=== PATIENT | female | born 1935 | race Caucasian/White ===

== ENCOUNTER 2023-07-16 15:25 | Inpatient (IN) | payer OTHER ==
[~2023-07-16] VITALS: Ht 152.4 cm; Wt 40.4 kg
[2023-07-16 15:26] VITALS: BP 126/84; PULSE 60; RESP 15; TEMP 97.7; O2SAT 98
[2023-07-16 16:27] LABS: ANION GAP 12.6 (8-16); CALCIUM 8.6 mg/dL (8.5-10.1); CARBON DIOXIDE 21.9 mmol/L (21-32); CHLORIDE 107 mmol/L (98-107); CREATININE 1.5 mg/dL (0.6-1.3); GLUCOSE 120 mg/dL (74-106); POTASSIUM 4.5 mmol/L (3.5-5.1); SODIUM SERUM 137 mmol/L (136-145); UREA NITROGEN, BLOOD 35 mg/dL (7-18)
[2023-07-16 16:27] LABS: BASOPHILS # (AUTO) 0.1 K/uL (0.00-0.22); BASOPHILS % (AUTO) 0.7 % (0.0-2.0); EOSINOPHILS % (AUTO) 0.3 % (0.0-4.0); HEMOGLOBIN 14.8 g/dL (12.0-16.0); LYMPHOCYTES # (AUTO) 1.1 K/uL (2.5-16.5); LYMPHOCYTES % (AUTO) 12.4 % (20.5-51.1); MEAN CORPUSCULAR HEMOGLOBIN 31 pg (27-31); MEAN CORPUSCULAR HGB CONC 33 g/dL (33-37); MEAN CORPUSCULAR VOLUME 93.4 fL (80-94); MONOCYTES # (AUTO) 0.7 K/uL (0.8-1.0); MONOCYTES % (AUTO) 7.8 % (1.7-9.3); NEUTROPHILS # (AUTO) 6.8 K/uL (1.8-7.7); NEUTROPHILS % (AUTO) 78.8 % (42.2-75.2); PLATELET COUNT (AUTO) 173 K/uL (140-450); RED BLOOD CELL COUNT(AUTO) 4.82 MIL/uL (4.20-5.40); RED CELL DISTRIBUTION WIDTH 15.3 % (11.6-13.7); WHITE BLOOD COUNT (AUTO) 8.7 K/uL (4.8-10.8)
[2023-07-16 16:36] LABS: ALANINE AMINOTRANSFERASE 13 U/L (12-78); ALBUMIN 3.3 g/dL (3.4-5.0); ALKALINE PHOSPHATASE 97 U/L (50-136); ASPARTATE AMINOTRANSFERASE 20 U/L (15-37); CALCIUM 8.5 mg/dL (8.5-10.1); CARBON DIOXIDE 22.5 mmol/L (21-32); CHLORIDE 108 mmol/L (98-107); CREATININE 1.5 mg/dL (0.6-1.3); GLUCOSE 119 mg/dL (74-106); POTASSIUM 4.5 mmol/L (3.5-5.1); SODIUM SERUM 139 mmol/L (136-145); TOTAL BILIRUBIN 1.7 mg/dL (0.0-1.0); TOTAL PROTEIN, SERUM 6.1 g/dL (6.4-8.2); UREA NITROGEN, BLOOD 35 mg/dL (7-18)
[2023-07-16] MEDS ORDERED: AZITHROMYCIN 500 MG in DEXTROSE 5% 250 ML IV ONE (16:45)
[2023-07-16] MEDS ORDERED: ASPIRIN 325 MG TAB PO ONE (16:50)
[2023-07-16] MEDS ORDERED: ONDANSETRON 4 MG/2 ML VIAL IVP PRN (17:15)
[2023-07-16 17:38] LABS: LACTIC ACID 2.8 mmol/L (0.4-2.0)
[2023-07-16] MEDS ORDERED: cefTRIAXone 1,000 MG VIAL ONE (18:01)
[2023-07-16] MEDS ORDERED: AZITHROMYCIN 500 MG INJ VIAL IV ONE (18:01)
[2023-07-16] MEDS ORDERED: ASPIRIN 325 MG TAB ONE (18:02)
[2023-07-16] MEDS ORDERED: [UNRECOGNIZED DRUG - CODE] (20:31)
[2023-07-16] MEDS ORDERED: MELA5TAB6 PO (20:31)
[2023-07-16] MEDS ORDERED: ALBU1SPR IH (20:31)
[2023-07-16] MEDS ORDERED: TOLT4CAP PO (20:31)
[2023-07-16] MEDS ORDERED: SERT50TA PO (20:31)
[2023-07-16] MEDS ORDERED: SERT25TA PO (20:31)
[2023-07-16] MEDS ORDERED: CARV3.12 PO (20:31)
[2023-07-16] MEDS ORDERED: [UNRECOGNIZED DRUG - CODE] IV (20:31)
[2023-07-16] MEDS ORDERED: FURO-572 PO (20:31)
[2023-07-16] MEDS ORDERED: MAGN400S60 PO (20:31)
[2023-07-16 20:39] VITALS: PULSE 75; PULSE 79; RESP 18; RESP 20; O2SAT 98
[2023-07-16] MEDS ORDERED: HALOPERIDOL IM 5 MG/ML VIAL IM ONE (21:30)
[2023-07-16] MEDS: ATORVASTATIN 20 MG TAB PO SCH (21:52)
[2023-07-17] VITALS (10 sets, daily range): BP systolic 126–139; BP diastolic 60–80; PULSE 59–96; RESP 18; TEMP 97.2–98.6; O2SAT 95–99
[2023-07-17 05:42] LABS: BASOPHILS % (AUTO) 0.2 % (0.0-2.0); HEMATOCRIT 41.8 % (36-48); HEMOGLOBIN 13.8 g/dL (12.0-16.0); LYMPHOCYTES # (AUTO) 1.1 K/uL (2.5-16.5); LYMPHOCYTES % (AUTO) 10.2 % (20.5-51.1); MEAN CORPUSCULAR HEMOGLOBIN 31 pg (27-31); MEAN CORPUSCULAR HGB CONC 33 g/dL (33-37); MEAN CORPUSCULAR VOLUME 93.4 fL (80-94); MONOCYTES # (AUTO) 0.8 K/uL (0.8-1.0); MONOCYTES % (AUTO) 6.9 % (1.7-9.3); NEUTROPHILS # (AUTO) 9.1 K/uL (1.8-7.7); NEUTROPHILS % (AUTO) 82.7 % (42.2-75.2); PLATELET COUNT (AUTO) 151 K/uL (140-450); RED BLOOD CELL COUNT(AUTO) 4.47 MIL/uL (4.20-5.40); RED CELL DISTRIBUTION WIDTH 15.5 % (11.6-13.7)
[2023-07-17 06:07] LABS: ANION GAP 15.6 (8-16); CALCIUM 8.7 mg/dL (8.5-10.1); CHLORIDE 106 mmol/L (98-107); CREATININE 1.6 mg/dL (0.6-1.3); GLUCOSE 112 mg/dL (74-106); POTASSIUM 4.6 mmol/L (3.5-5.1); SODIUM SERUM 139 mmol/L (136-145); UREA NITROGEN, BLOOD 38 mg/dL (7-18)
[2023-07-17] MEDS: IPRATROPIUM 0.02% 0.5 MG/2.5 ML NEBU INH SCH ×3 (07:41→19:33)
[2023-07-17] MEDS: ECOTRIN 81 MG TABEC PO SCH (09:44)
[2023-07-17] MEDS: FUROSEMIDE 40 MG/4 ML VIAL IVP SCH (09:44)
[2023-07-17] MEDS: ALBUTEROL 0.083% 2.5 MG/3 ML NEBU INH PRN (12:27)
[2023-07-17] MEDS: DOCUSATE SODIUM 100 MG GELCAP PO SCH (20:57)
[2023-07-17] MEDS: ATORVASTATIN 20 MG TAB PO SCH (20:57)
[2023-07-17] MEDS: carvediloL 3.125 MG TAB PO SCH (20:57)
[2023-07-18] VITALS (11 sets, daily range): BP systolic 107–144; BP diastolic 64–81; PULSE 60–77; RESP 18–22; TEMP 97.1–98.6; O2SAT 93–100
[2023-07-18] MEDS: IPRATROPIUM 0.02% 0.5 MG/2.5 ML NEBU INH SCH ×3 (00:58→19:28)
[2023-07-18 07:29] LABS: BASOPHILS % (AUTO) 0.3 % (0.0-2.0); EOSINOPHILS % (AUTO) 0.2 % (0.0-4.0); HEMATOCRIT 44.7 % (36-48); HEMOGLOBIN 14.6 g/dL (12.0-16.0); LYMPHOCYTES # (AUTO) 0.8 K/uL (2.5-16.5); LYMPHOCYTES % (AUTO) 8.3 % (20.5-51.1); MEAN CORPUSCULAR HEMOGLOBIN 31 pg (27-31); MEAN CORPUSCULAR HGB CONC 33 g/dL (33-37); MONOCYTES # (AUTO) 0.5 K/uL (0.8-1.0); MONOCYTES % (AUTO) 5.9 % (1.7-9.3); NEUTROPHILS # (AUTO) 7.9 K/uL (1.8-7.7); NEUTROPHILS % (AUTO) 85.3 % (42.2-75.2); PLATELET COUNT (AUTO) 164 K/uL (140-450); RED BLOOD CELL COUNT(AUTO) 4.75 MIL/uL (4.20-5.40); RED CELL DISTRIBUTION WIDTH 15.7 % (11.6-13.7); WHITE BLOOD COUNT (AUTO) 9.3 K/uL (4.8-10.8)
[2023-07-18] MEDS: ALBUTEROL 0.083% 2.5 MG/3 ML NEBU INH PRN (07:45)
[2023-07-18 07:56] LABS: ANION GAP 17.5 (8-16); CALCIUM 8.8 mg/dL (8.5-10.1); CARBON DIOXIDE 24.1 mmol/L (21-32); CHLORIDE 105 mmol/L (98-107); CREATININE 1.7 mg/dL (0.6-1.3); GLUCOSE 104 mg/dL (74-106); POTASSIUM 4.6 mmol/L (3.5-5.1); SODIUM SERUM 142 mmol/L (136-145); UREA NITROGEN, BLOOD 37 mg/dL (7-18)
[2023-07-18 08:10] LABS: CHOL/HDL RATIO 3.9 (1-4.5); THYROID STIMULATING HORMONE 3.11 uIU/mL (0.34-3.74)
[2023-07-18] MEDS: DOCUSATE SODIUM 100 MG GELCAP PO SCH ×2 (09:19→20:45)
[2023-07-18] MEDS: ECOTRIN 81 MG TABEC PO SCH (09:19)
[2023-07-18] MEDS: AZITHROMYCIN 250 MG TAB PO SCH (09:20)
[2023-07-18] MEDS: FUROSEMIDE 40 MG/4 ML VIAL IVP SCH (09:20)
[2023-07-18] MEDS: carvediloL 3.125 MG TAB PO SCH ×2 (09:20→20:46)
[2023-07-18] MEDS: ATORVASTATIN 20 MG TAB PO SCH (20:46)
[2023-07-19] VITALS (7 sets, daily range): BP systolic 119–145; BP diastolic 54–69; PULSE 60–75; RESP 16–20; TEMP 97.3–98; O2SAT 92–98
[2023-07-19] MEDS: IPRATROPIUM 0.02% 0.5 MG/2.5 ML NEBU INH SCH ×5 (01:00→19:00)
[2023-07-19 07:15] LABS: BASOPHILS % (AUTO) 0.1 % (0.0-2.0); EOSINOPHILS % (AUTO) 0.3 % (0.0-4.0); HEMATOCRIT 44.1 % (36-48); HEMOGLOBIN 14.5 g/dL (12.0-16.0); LYMPHOCYTES # (AUTO) 0.8 K/uL (2.5-16.5); LYMPHOCYTES % (AUTO) 8.1 % (20.5-51.1); MEAN CORPUSCULAR HEMOGLOBIN 31 pg (27-31); MEAN CORPUSCULAR HGB CONC 33 g/dL (33-37); MEAN CORPUSCULAR VOLUME 93.3 fL (80-94); MONOCYTES # (AUTO) 0.6 K/uL (0.8-1.0); MONOCYTES % (AUTO) 5.8 % (1.7-9.3); NEUTROPHILS # (AUTO) 8.5 K/uL (1.8-7.7); NEUTROPHILS % (AUTO) 85.7 % (42.2-75.2); PLATELET COUNT (AUTO) 161 K/uL (140-450); RED BLOOD CELL COUNT(AUTO) 4.73 MIL/uL (4.20-5.40); RED CELL DISTRIBUTION WIDTH 15.5 % (11.6-13.7); WHITE BLOOD COUNT (AUTO) 9.9 K/uL (4.8-10.8)
[2023-07-19] MEDS: ALBUTEROL 0.083% 2.5 MG/3 ML NEBU INH PRN ×2 (07:19→07:22)
[2023-07-19 07:32] LABS: ANION GAP 18.5 (8-16); CALCIUM 8.9 mg/dL (8.5-10.1); CARBON DIOXIDE 23.6 mmol/L (21-32); CHLORIDE 107 mmol/L (98-107); CREATININE 1.6 mg/dL (0.6-1.3); GLUCOSE 108 mg/dL (74-106); POTASSIUM 4.1 mmol/L (3.5-5.1); SODIUM SERUM 145 mmol/L (136-145); UREA NITROGEN, BLOOD 40 mg/dL (7-18)
[2023-07-19 07:56] LABS: MAGNESIUM 2.3 mg/dL (1.8-2.4); PHOSPHORUS 4.5 mg/dL (2.5-4.9)
[2023-07-19] MEDS: FUROSEMIDE 40 MG/4 ML VIAL IVP SCH (09:18)
[2023-07-19] MEDS: ECOTRIN 81 MG TABEC PO SCH (09:19)
[2023-07-19] MEDS: DOCUSATE SODIUM 100 MG GELCAP PO SCH ×2 (09:19→21:00)
[2023-07-19] MEDS: carvediloL 3.125 MG TAB PO SCH ×2 (09:19→21:00)
[2023-07-19] MEDS: AZITHROMYCIN 250 MG TAB PO SCH (09:19)
[2023-07-19] MEDS: ATORVASTATIN 20 MG TAB PO SCH (21:00)
[2023-07-20] VITALS (9 sets, daily range): BP systolic 117–142; BP diastolic 63–80; PULSE 61–79; RESP 14–20; TEMP 96.9–98; O2SAT 92–100
[2023-07-20] MEDS: IPRATROPIUM 0.02% 0.5 MG/2.5 ML NEBU INH SCH ×4 (01:00→20:48)
[2023-07-20 06:00] LABS: BASOPHILS % (AUTO) 0.2 % (0.0-2.0); HEMATOCRIT 45.1 % (36-48); HEMOGLOBIN 14.7 g/dL (12.0-16.0); LYMPHOCYTES # (AUTO) 0.6 K/uL (2.5-16.5); LYMPHOCYTES % (AUTO) 4.8 % (20.5-51.1); MEAN CORPUSCULAR HEMOGLOBIN 31 pg (27-31); MEAN CORPUSCULAR HGB CONC 33 g/dL (33-37); MEAN CORPUSCULAR VOLUME 94.3 fL (80-94); MONOCYTES # (AUTO) 0.8 K/uL (0.8-1.0); MONOCYTES % (AUTO) 5.7 % (1.7-9.3); NEUTROPHILS # (AUTO) 11.8 K/uL (1.8-7.7); NEUTROPHILS % (AUTO) 89.3 % (42.2-75.2); PLATELET COUNT (AUTO) 161 K/uL (140-450); RED BLOOD CELL COUNT(AUTO) 4.79 MIL/uL (4.20-5.40); RED CELL DISTRIBUTION WIDTH 16.3 % (11.6-13.7); WHITE BLOOD COUNT (AUTO) 13.2 K/uL (4.8-10.8)
[2023-07-20] MEDS: ALBUTEROL 0.083% 2.5 MG/3 ML NEBU INH PRN (07:59)
[2023-07-20] MEDS: FUROSEMIDE 40 MG/4 ML VIAL IVP SCH (08:47)
[2023-07-20] MEDS: AZITHROMYCIN 250 MG TAB PO SCH (08:53)
[2023-07-20] MEDS: DOCUSATE SODIUM 100 MG GELCAP PO SCH ×2 (08:53→21:18)
[2023-07-20] MEDS: ECOTRIN 81 MG TABEC PO SCH (08:53)
[2023-07-20] MEDS: carvediloL 3.125 MG TAB PO SCH ×2 (08:53→21:18)
[2023-07-20 10:06] LABS: ALANINE AMINOTRANSFERASE 15 U/L (12-78); ALBUMIN 3.6 g/dL (3.4-5.0); ALKALINE PHOSPHATASE 97 U/L (50-136); ANION GAP 25.4 (8-16); ASPARTATE AMINOTRANSFERASE 29 U/L (15-37); CALCIUM 8.9 mg/dL (8.5-10.1); CARBON DIOXIDE 17.8 mmol/L (21-32); CHLORIDE 108 mmol/L (98-107); CREATININE 2.1 mg/dL (0.6-1.3); GLUCOSE 103 mg/dL (74-106); MAGNESIUM 2.6 mg/dL (1.8-2.4); PHOSPHORUS 5.6 mg/dL (2.5-4.9); POTASSIUM 4.2 mmol/L (3.5-5.1); SODIUM SERUM 147 mmol/L (136-145); TOTAL BILIRUBIN 1.4 mg/dL (0.0-1.0); TOTAL PROTEIN, SERUM 6.4 g/dL (6.4-8.2); UREA NITROGEN, BLOOD 52 mg/dL (7-18)
[2023-07-20] MEDS: NACL 0.45% 1,000 ML IV SCH (18:26)
[2023-07-20] MEDS: ATORVASTATIN 20 MG TAB PO SCH (21:18)
[2023-07-21] VITALS (7 sets, daily range): BP systolic 129–138; BP diastolic 64–65; PULSE 60–83; RESP 18–20; TEMP 97.3–97.4; O2SAT 95–100
[2023-07-21] MEDS: IPRATROPIUM 0.02% 0.5 MG/2.5 ML NEBU INH SCH ×4 (01:20→19:08)
[2023-07-21 06:27] LABS: ANION GAP 16.4 (8-16); CALCIUM 8.5 mg/dL (8.5-10.1); CARBON DIOXIDE 25.1 mmol/L (21-32); CHLORIDE 109 mmol/L (98-107); CREATININE 2.1 mg/dL (0.6-1.3); GLUCOSE 111 mg/dL (74-106); POTASSIUM 4.5 mmol/L (3.5-5.1); SODIUM SERUM 146 mmol/L (136-145); UREA NITROGEN, BLOOD 59 mg/dL (7-18)
[2023-07-21 06:48] LABS: MAGNESIUM 2.4 mg/dL (1.8-2.4); PHOSPHORUS 5.3 mg/dL (2.5-4.9)
[2023-07-21] MEDS: FUROSEMIDE 40 MG/4 ML VIAL IVP SCH (09:20)
[2023-07-21] MEDS: ECOTRIN 81 MG TABEC PO SCH (09:20)
[2023-07-21] MEDS: carvediloL 3.125 MG TAB PO SCH ×2 (09:20→22:31)
[2023-07-21] MEDS: DOCUSATE SODIUM 100 MG GELCAP PO SCH ×2 (09:21→22:30)
[2023-07-21] MEDS: AZITHROMYCIN 250 MG TAB PO SCH (09:21)
[2023-07-21] MEDS: NACL 0.45% 1,000 ML IV SCH (09:22)
[2023-07-21] MEDS ORDERED: LORazepam 2 MG/ML VIAL IVP PRN (16:00)
[2023-07-21] MEDS: ATORVASTATIN 20 MG TAB PO SCH (22:32)
[2023-07-22] MEDS: IPRATROPIUM 0.02% 0.5 MG/2.5 ML NEBU INH SCH ×4 (01:00→19:00)
[2023-07-22 04:00] VITALS: BP 117/63; PULSE 84; RESP 18; TEMP 97.4; O2SAT 99
[2023-07-22 06:03] LABS: ANION GAP 16.4 (8-16); CALCIUM 8.6 mg/dL (8.5-10.1); CARBON DIOXIDE 25.2 mmol/L (21-32); CHLORIDE 111 mmol/L (98-107); GLUCOSE 82 mg/dL (74-106); POTASSIUM 4.6 mmol/L (3.5-5.1); SODIUM SERUM 148 mmol/L (136-145)
[2023-07-22 06:05] LABS: BASOPHILS % (AUTO) 0.5 % (0.0-2.0); HEMATOCRIT 45.1 % (36-48); HEMOGLOBIN 14.8 g/dL (12.0-16.0); LYMPHOCYTES # (AUTO) 0.7 K/uL (2.5-16.5); LYMPHOCYTES % (AUTO) 6.7 % (20.5-51.1); MEAN CORPUSCULAR HEMOGLOBIN 31 pg (27-31); MEAN CORPUSCULAR HGB CONC 33 g/dL (33-37); MONOCYTES % (AUTO) 10.1 % (1.7-9.3); NEUTROPHILS # (AUTO) 8.2 K/uL (1.8-7.7); NEUTROPHILS % (AUTO) 82.7 % (42.2-75.2); PLATELET COUNT (AUTO) 136 K/uL (140-450); RED CELL DISTRIBUTION WIDTH 16.3 % (11.6-13.7); WHITE BLOOD COUNT (AUTO) 9.9 K/uL (4.8-10.8)
[2023-07-22 06:08] LABS: CREATININE 1.7 mg/dL (0.6-1.3); UREA NITROGEN, BLOOD 64 mg/dL (7-18)
[2023-07-22 06:37] LABS: MAGNESIUM 2.7 mg/dL (1.8-2.4); PHOSPHORUS 5.3 mg/dL (2.5-4.9)
[2023-07-22 07:35] VITALS: PULSE 54; RESP 16; O2SAT 92
[2023-07-22 08:00] VITALS: PULSE 75; RESP 18; RESP 20; O2SAT 98
[2023-07-22] MEDS: CALCIUM ACETATE 667 MG TAB PO SCH (08:00)
[2023-07-22] MEDS ORDERED: AZIT250T3 PO (08:20)
[2023-07-22] MEDS ORDERED: ALBU0.0912 INH (08:20)
[2023-07-22] MEDS: ECOTRIN 81 MG TABEC PO SCH (09:00)
[2023-07-22] MEDS: carvediloL 3.125 MG TAB PO SCH ×3 (09:00→23:54)
[2023-07-22] MEDS: AZITHROMYCIN 250 MG TAB PO SCH (09:00)
[2023-07-22] MEDS: DOCUSATE SODIUM 100 MG GELCAP PO SCH ×3 (09:00→23:54)
[2023-07-22] MEDS: FUROSEMIDE 40 MG/4 ML VIAL IVP SCH (09:31)
[2023-07-22 12:00] VITALS: BP 115/62; PULSE 72; RESP 22; TEMP 97.8; O2SAT 97
[2023-07-22] MEDS: ALBUTEROL 0.083% 2.5 MG/3 ML NEBU INH PRN (13:57)
[2023-07-22 13:58] VITALS: PULSE 70; RESP 20; O2SAT 92
[2023-07-22] MEDS: DEXT 5% / NACL 0.45% 1,000 ML IV SCH (15:36)
[2023-07-22 20:00] VITALS: BP 140/70; PULSE 66; RESP 20; TEMP 98; O2SAT 95
[2023-07-22] MEDS: ATORVASTATIN 20 MG TAB PO SCH ×2 (23:00→23:54)
[2023-07-23] VITALS (8 sets, daily range): BP systolic 133–155; BP diastolic 75–90; PULSE 66–92; RESP 16–24; TEMP 96.3–98.6; O2SAT 90–97
[2023-07-23] MEDS: IPRATROPIUM 0.02% 0.5 MG/2.5 ML NEBU INH SCH ×4 (01:00→20:33)
[2023-07-23 06:02] LABS: BASOPHILS % (AUTO) 0.1 % (0.0-2.0); HEMATOCRIT 47.3 % (36-48); HEMOGLOBIN 15.5 g/dL (12.0-16.0); LYMPHOCYTES # (AUTO) 0.4 K/uL (2.5-16.5); LYMPHOCYTES % (AUTO) 3.6 % (20.5-51.1); MEAN CORPUSCULAR HEMOGLOBIN 31 pg (27-31); MEAN CORPUSCULAR HGB CONC 33 g/dL (33-37); MEAN CORPUSCULAR VOLUME 94.2 fL (80-94); MONOCYTES # (AUTO) 0.8 K/uL (0.8-1.0); MONOCYTES % (AUTO) 7.2 % (1.7-9.3); NEUTROPHILS # (AUTO) 9.3 K/uL (1.8-7.7); NEUTROPHILS % (AUTO) 89.1 % (42.2-75.2); PLATELET COUNT (AUTO) 127 K/uL (140-450); RED BLOOD CELL COUNT(AUTO) 5.02 MIL/uL (4.20-5.40); RED CELL DISTRIBUTION WIDTH 16.4 % (11.6-13.7); WHITE BLOOD COUNT (AUTO) 10.5 K/uL (4.8-10.8)
[2023-07-23] MEDS: DEXT 5% / NACL 0.45% 1,000 ML IV SCH (06:54)
[2023-07-23 07:07] LABS: MAGNESIUM 2.5 mg/dL (1.8-2.4); PHOSPHORUS 3.8 mg/dL (2.5-4.9)
[2023-07-23 07:16] LABS: ANION GAP 17.5 (8-16); CALCIUM 8.4 mg/dL (8.5-10.1); CARBON DIOXIDE 25.9 mmol/L (21-32); CHLORIDE 112 mmol/L (98-107); CREATININE 1.6 mg/dL (0.6-1.3); GLUCOSE 157 mg/dL (74-106); POTASSIUM 3.4 mmol/L (3.5-5.1); SODIUM SERUM 152 mmol/L (136-145); UREA NITROGEN, BLOOD 57 mg/dL (7-18)
[2023-07-23] MEDS: CALCIUM ACETATE 667 MG TAB PO SCH (08:00)
[2023-07-23] MEDS: DOCUSATE SODIUM 100 MG GELCAP PO SCH ×2 (09:00→21:00)
[2023-07-23] MEDS: AZITHROMYCIN 250 MG TAB PO SCH (09:00)
[2023-07-23] MEDS: ECOTRIN 81 MG TABEC PO SCH (09:00)
[2023-07-23] MEDS: carvediloL 3.125 MG TAB PO SCH ×2 (09:00→21:00)
[2023-07-23] MEDS: FUROSEMIDE 40 MG/4 ML VIAL IVP SCH (09:21)
[2023-07-23] MEDS: DEXTROSE 5% 1,000 ML IV SCH (18:50)
[2023-07-23] MEDS: ALBUTEROL 0.083% 2.5 MG/3 ML NEBU INH PRN (20:33)
[2023-07-23] MEDS: ATORVASTATIN 20 MG TAB PO SCH (21:00)
[2023-07-24] MEDS: IPRATROPIUM 0.02% 0.5 MG/2.5 ML NEBU INH SCH ×4 (01:00→19:45)
[2023-07-24] MEDS: DEXTROSE 5% 1,000 ML IV SCH ×3 (03:30→23:38)
[2023-07-24 04:00] VITALS: BP 143/65; PULSE 66; RESP 16; TEMP 97; O2SAT 95
[2023-07-24 07:21] LABS: BASOPHILS % (AUTO) 0.1 % (0.0-2.0); HEMATOCRIT 44.8 % (36-48); HEMOGLOBIN 14.6 g/dL (12.0-16.0); LYMPHOCYTES # (AUTO) 0.3 K/uL (2.5-16.5); LYMPHOCYTES % (AUTO) 3.2 % (20.5-51.1); MEAN CORPUSCULAR HEMOGLOBIN 31 pg (27-31); MEAN CORPUSCULAR HGB CONC 33 g/dL (33-37); MEAN CORPUSCULAR VOLUME 93.7 fL (80-94); MONOCYTES # (AUTO) 0.6 K/uL (0.8-1.0); MONOCYTES % (AUTO) 5.8 % (1.7-9.3); NEUTROPHILS # (AUTO) 9.7 K/uL (1.8-7.7); NEUTROPHILS % (AUTO) 90.9 % (42.2-75.2); PLATELET COUNT (AUTO) 100 K/uL (140-450); RED BLOOD CELL COUNT(AUTO) 4.78 MIL/uL (4.20-5.40); RED CELL DISTRIBUTION WIDTH 16.5 % (11.6-13.7); WHITE BLOOD COUNT (AUTO) 10.7 K/uL (4.8-10.8)
[2023-07-24 07:40] LABS: ANION GAP 13.2 (8-16); CALCIUM 8.3 mg/dL (8.5-10.1); CARBON DIOXIDE 28.4 mmol/L (21-32); CHLORIDE 110 mmol/L (98-107); GLUCOSE 113 mg/dL (74-106); SODIUM SERUM 149 mmol/L (136-145); UREA NITROGEN, BLOOD 39 mg/dL (7-18)
[2023-07-24 07:44] VITALS: PULSE 65; RESP 22; O2SAT 93
[2023-07-24] MEDS: ALBUTEROL 0.083% 2.5 MG/3 ML NEBU INH PRN (07:44)
[2023-07-24 07:47] LABS: MAGNESIUM 2.2 mg/dL (1.8-2.4); PHOSPHORUS 2.5 mg/dL (2.5-4.9)
[2023-07-24 07:49] LABS: POTASSIUM 2.6 mmol/L (3.5-5.1)
[2023-07-24 08:00] VITALS: PULSE 92; RESP 16; RESP 21; O2SAT 96
[2023-07-24] MEDS: CALCIUM ACETATE 667 MG TAB PO SCH (08:00)
[2023-07-24] MEDS ORDERED: POTASSIUM CHL 40 MEQ/ D5-1/2NS 1,000 ML IV SCH (08:05)
[2023-07-24] MEDS ORDERED: POTASSIUM CHLORIDE 10 MEQ TABER PO SCH (08:20)
[2023-07-24] MEDS: carvediloL 3.125 MG TAB PO SCH ×2 (09:00→20:45)
[2023-07-24] MEDS: AZITHROMYCIN 250 MG TAB PO SCH (09:00)
[2023-07-24] MEDS ORDERED: POTASSIUM CHLORIDE 40 MEQ, LIDOCAINE 1% 25 MG in NACL 0.9% 250 ML IV SCH (09:00)
[2023-07-24] MEDS: DOCUSATE SODIUM 100 MG GELCAP PO SCH ×2 (09:00→20:44)
[2023-07-24] MEDS: ECOTRIN 81 MG TABEC PO SCH (09:00)
[2023-07-24] MEDS: FUROSEMIDE 40 MG/4 ML VIAL IVP SCH (11:22)
[2023-07-24 12:00] VITALS: BP 143/65; PULSE 92; RESP 16; TEMP 97; O2SAT 96
[2023-07-24 13:56] VITALS: PULSE 82; RESP 20; O2SAT 93
[2023-07-24 20:00] VITALS: BP 117/78; PULSE 84; RESP 18; TEMP 97.3; O2SAT 93
[2023-07-24] MEDS: ATORVASTATIN 20 MG TAB PO SCH (20:45)
[2023-07-25] VITALS (9 sets, daily range): BP systolic 143–149; BP diastolic 76–90; PULSE 66–88; RESP 16–26; TEMP 97–97.8; O2SAT 90–99
[2023-07-25] MEDS: IPRATROPIUM 0.02% 0.5 MG/2.5 ML NEBU INH SCH ×4 (02:41→19:52)
[2023-07-25 07:17] LABS: CALCIUM 8.4 mg/dL (8.5-10.1); CARBON DIOXIDE 24.6 mmol/L (21-32); CHLORIDE 107 mmol/L (98-107); GLUCOSE 142 mg/dL (74-106); POTASSIUM 3.6 mmol/L (3.5-5.1); SODIUM SERUM 144 mmol/L (136-145); UREA NITROGEN, BLOOD 32 mg/dL (7-18)
[2023-07-25 07:30] LABS: HEMATOCRIT 47.9 % (36-48); HEMOGLOBIN 15.7 g/dL (12.0-16.0); LYMPHOCYTES # (AUTO) 0.4 K/uL (2.5-16.5); LYMPHOCYTES % (AUTO) 3.2 % (20.5-51.1); MEAN CORPUSCULAR HEMOGLOBIN 31 pg (27-31); MEAN CORPUSCULAR HGB CONC 33 g/dL (33-37); MEAN CORPUSCULAR VOLUME 94.5 fL (80-94); MONOCYTES # (AUTO) 0.5 K/uL (0.8-1.0); MONOCYTES % (AUTO) 4.4 % (1.7-9.3); NEUTROPHILS # (AUTO) 10.2 K/uL (1.8-7.7); NEUTROPHILS % (AUTO) 92.4 % (42.2-75.2); PLATELET COUNT (AUTO) 99 K/uL (140-450); RED BLOOD CELL COUNT(AUTO) 5.07 MIL/uL (4.20-5.40); RED CELL DISTRIBUTION WIDTH 16.1 % (11.6-13.7)
[2023-07-25] MEDS: CALCIUM ACETATE 667 MG TAB PO SCH (08:00)
[2023-07-25] MEDS: FUROSEMIDE 40 MG/4 ML VIAL IVP SCH (08:29)
[2023-07-25] MEDS: ECOTRIN 81 MG TABEC PO SCH (08:37)
[2023-07-25] MEDS: DOCUSATE SODIUM 100 MG GELCAP PO SCH ×2 (08:37→21:00)
[2023-07-25] MEDS: carvediloL 3.125 MG TAB PO SCH ×2 (08:37→21:00)
[2023-07-25 08:45] LABS: MAGNESIUM 2.1 mg/dL (1.8-2.4); PHOSPHORUS 2.3 mg/dL (2.5-4.9)
[2023-07-25] MEDS ORDERED: DEXT 5% / NACL 0.9% 500 ML IV SCH (09:40)
[2023-07-25] MEDS ORDERED: DEXT 5% /NACL 0.9% 1,000 ML IV SCH (09:40)
[2023-07-25] MEDS: DEXT 5% /NACL 0.9% 1,000 ML IV SCH (10:32)
[2023-07-25] MEDS: ATORVASTATIN 20 MG TAB PO SCH (21:00)
[2023-07-26] VITALS (7 sets, daily range): BP systolic 126–143; BP diastolic 63–66; PULSE 78–95; RESP 18–36; TEMP 96.3–97.8; O2SAT 92–100
[2023-07-26] MEDS: IPRATROPIUM 0.02% 0.5 MG/2.5 ML NEBU INH SCH ×4 (01:36→20:01)
[2023-07-26] MEDS: DEXT 5% /NACL 0.9% 1,000 ML IV SCH (05:46)
[2023-07-26 07:38] LABS: BASOPHILS % (AUTO) 0.4 % (0.0-2.0); HEMATOCRIT 47.9 % (36-48); HEMOGLOBIN 15.4 g/dL (12.0-16.0); LYMPHOCYTES # (AUTO) 0.3 K/uL (2.5-16.5); MEAN CORPUSCULAR HEMOGLOBIN 30 pg (27-31); MEAN CORPUSCULAR HGB CONC 32 g/dL (33-37); MEAN CORPUSCULAR VOLUME 93.7 fL (80-94); MONOCYTES # (AUTO) 0.5 K/uL (0.8-1.0); MONOCYTES % (AUTO) 4.3 % (1.7-9.3); NEUTROPHILS # (AUTO) 10.4 K/uL (1.8-7.7); NEUTROPHILS % (AUTO) 92.3 % (42.2-75.2); PLATELET COUNT (AUTO) 86 K/uL (140-450); RED BLOOD CELL COUNT(AUTO) 5.12 MIL/uL (4.20-5.40); RED CELL DISTRIBUTION WIDTH 16.2 % (11.6-13.7); WHITE BLOOD COUNT (AUTO) 11.2 K/uL (4.8-10.8)
[2023-07-26 08:12] LABS: CALCIUM 8.6 mg/dL (8.5-10.1); CARBON DIOXIDE 27.2 mmol/L (21-32); CHLORIDE 110 mmol/L (98-107); GLUCOSE 136 mg/dL (74-106); POTASSIUM 3.2 mmol/L (3.5-5.1); SODIUM SERUM 147 mmol/L (136-145); UREA NITROGEN, BLOOD 33 mg/dL (7-18)
[2023-07-26] MEDS: ALBUTEROL 0.083% 2.5 MG/3 ML NEBU INH PRN (08:17)
[2023-07-26] MEDS ORDERED: POTASSIUM CHLORIDE 40 MEQ, LIDOCAINE 1% 25 MG in NACL 0.9% 250 ML IV ONE (08:35)
[2023-07-26] MEDS: ECOTRIN 81 MG TABEC PO SCH (09:00)
[2023-07-26] MEDS: carvediloL 3.125 MG TAB PO SCH ×2 (09:00→20:30)
[2023-07-26] MEDS: DOCUSATE SODIUM 100 MG GELCAP PO SCH ×2 (09:00→20:29)
[2023-07-26] MEDS: FUROSEMIDE 40 MG/4 ML VIAL IVP SCH (09:44)
[2023-07-26] MEDS: LEVALBUTEROL 0.63 MG/3 ML NEBU INH SCH ×3 (14:38→20:03)
[2023-07-26] MEDS: ATORVASTATIN 20 MG TAB PO SCH (20:29)
[2023-07-27] MEDS: IPRATROPIUM 0.02% 0.5 MG/2.5 ML NEBU INH SCH ×4 (00:56→19:22)
[2023-07-27] MEDS: LEVALBUTEROL 0.63 MG/3 ML NEBU INH SCH ×4 (00:57→19:22)
[2023-07-27 01:04] VITALS: PULSE 89; RESP 20; O2SAT 93
[2023-07-27] MEDS: DEXT 5% /NACL 0.9% 1,000 ML IV SCH (01:54)
[2023-07-27 04:00] VITALS: BP 130/62; PULSE 80; RESP 18; TEMP 97.3; O2SAT 100
[2023-07-27 08:00] VITALS: PULSE 81; RESP 18; O2SAT 100; O2SAT 98
[2023-07-27 08:46] LABS: BASOPHILS % (AUTO) 0.1 % (0.0-2.0); HEMATOCRIT 49.1 % (36-48); LYMPHOCYTES # (AUTO) 0.5 K/uL (2.5-16.5); LYMPHOCYTES % (AUTO) 3.3 % (20.5-51.1); MEAN CORPUSCULAR HEMOGLOBIN 31 pg (27-31); MEAN CORPUSCULAR HGB CONC 33 g/dL (33-37); MEAN CORPUSCULAR VOLUME 94.6 fL (80-94); MONOCYTES # (AUTO) 0.6 K/uL (0.8-1.0); MONOCYTES % (AUTO) 4.5 % (1.7-9.3); NEUTROPHILS # (AUTO) 12.9 K/uL (1.8-7.7); NEUTROPHILS % (AUTO) 92.1 % (42.2-75.2); PLATELET COUNT (AUTO) 81 K/uL (140-450); RED BLOOD CELL COUNT(AUTO) 5.19 MIL/uL (4.20-5.40); RED CELL DISTRIBUTION WIDTH 16.5 % (11.6-13.7)
[2023-07-27] MEDS: DOCUSATE SODIUM 100 MG GELCAP PO SCH ×2 (09:00→22:11)
[2023-07-27] MEDS: ECOTRIN 81 MG TABEC PO SCH (09:00)
[2023-07-27] MEDS: carvediloL 3.125 MG TAB PO SCH ×2 (09:00→22:11)
[2023-07-27 09:16] LABS: ANION GAP 15.1 (8-16); CALCIUM 8.8 mg/dL (8.5-10.1); CHLORIDE 113 mmol/L (98-107); CREATININE 1.5 mg/dL (0.6-1.3); GLUCOSE 146 mg/dL (74-106); POTASSIUM 4.1 mmol/L (3.5-5.1); SODIUM SERUM 151 mmol/L (136-145); UREA NITROGEN, BLOOD 16 mg/dL (7-18)
[2023-07-27] MEDS: DEXT 5% / NACL 0.45% 1,000 ML IV SCH (10:17)
[2023-07-27 12:00] VITALS: BP 138/69; PULSE 94; RESP 18; TEMP 97.6; O2SAT 95
[2023-07-27 19:22] VITALS: PULSE 101; RESP 20; O2SAT 96
[2023-07-27 20:00] VITALS: BP 128/70; PULSE 88; PULSE 98; RESP 18; TEMP 97.9; O2SAT 97
[2023-07-27] MEDS: PIPERACILLIN/TAZOBACTAM 2.25 GM in DEXTROSE 5% 50 ML IV SCH (21:25)
[2023-07-27] MEDS: ATORVASTATIN 20 MG TAB PO SCH (22:12)
[2023-07-28] VITALS (10 sets, daily range): BP systolic 110–161; BP diastolic 50–81; PULSE 62–85; RESP 16–32; TEMP 96.5–98.8; O2SAT 94–99
[2023-07-28] MEDS: IPRATROPIUM 0.02% 0.5 MG/2.5 ML NEBU INH SCH ×3 (01:32→19:45)
[2023-07-28] MEDS: LEVALBUTEROL 0.63 MG/3 ML NEBU INH SCH ×3 (01:33→19:45)
[2023-07-28] MEDS: DEXT 5% / NACL 0.45% 1,000 ML IV SCH (05:29)
[2023-07-28] MEDS: PIPERACILLIN/TAZOBACTAM 2.25 GM in DEXTROSE 5% 50 ML IV SCH ×3 (05:35→20:27)
[2023-07-28 05:47] LABS: HEMATOCRIT 46.2 % (36-48); HEMOGLOBIN 14.8 g/dL (12.0-16.0); LYMPHOCYTES # (AUTO) 0.5 K/uL (2.5-16.5); LYMPHOCYTES % (AUTO) 2.8 % (20.5-51.1); MEAN CORPUSCULAR HEMOGLOBIN 31 pg (27-31); MEAN CORPUSCULAR HGB CONC 32 g/dL (33-37); MEAN CORPUSCULAR VOLUME 95.5 fL (80-94); MONOCYTES # (AUTO) 0.9 K/uL (0.8-1.0); MONOCYTES % (AUTO) 4.8 % (1.7-9.3); NEUTROPHILS # (AUTO) 16.7 K/uL (1.8-7.7); NEUTROPHILS % (AUTO) 92.4 % (42.2-75.2); PLATELET COUNT (AUTO) 59 K/uL (140-450); RED BLOOD CELL COUNT(AUTO) 4.83 MIL/uL (4.20-5.40); WHITE BLOOD COUNT (AUTO) 18.1 K/uL (4.8-10.8)
[2023-07-28 06:14] LABS: ANION GAP 17.6 (8-16); CALCIUM 8.7 mg/dL (8.5-10.1); CARBON DIOXIDE 21.6 mmol/L (21-32); CHLORIDE 116 mmol/L (98-107); CREATININE 1.9 mg/dL (0.6-1.3); GLUCOSE 127 mg/dL (74-106); POTASSIUM 4.2 mmol/L (3.5-5.1); SODIUM SERUM 151 mmol/L (136-145); UREA NITROGEN, BLOOD 59 mg/dL (7-18)
[2023-07-28] MEDS: ECOTRIN 81 MG TABEC PO SCH (09:00)
[2023-07-28] MEDS: DOCUSATE SODIUM 100 MG GELCAP PO SCH ×2 (09:00→20:28)
[2023-07-28] MEDS: carvediloL 3.125 MG TAB PO SCH ×2 (09:00→20:28)
[2023-07-28] MEDS: ALBUTEROL 0.083% 2.5 MG/3 ML NEBU INH PRN (09:34)
[2023-07-28] MEDS: ALBUMIN HUMAN 25% 50 ML IV SCH ×2 (09:37→20:20)
[2023-07-28] MEDS: FUROSEMIDE 20 MG/2 ML VIAL IVP SCH ×2 (10:25→20:26)
[2023-07-28 13:09] LABS: BLOOD GAS HCO3 20.4 mmol/L (22-26); BLOOD GAS PCO2 39.7 mmHg (35-45); BLOOD GAS PH 7.329 (7.35-7.45); BLOOD GAS PO2 103.9 mmHg (75-100)
[2023-07-28 13:10] LABS: BLOOD GAS O2 SAT% 97.6 % (92.0-98.5)
[2023-07-28 13:15] LABS: BLOOD GAS BASE EXCESS -5.1 mmol/L (-2.0-2.0)
[2023-07-28] MEDS ORDERED: FUROSEMIDE 40 MG/4 ML VIAL IVP SCH (17:00)
[2023-07-28] MEDS: ATORVASTATIN 20 MG TAB PO SCH (20:29)
[2023-07-29] VITALS (9 sets, daily range): BP systolic 89–116; BP diastolic 37–49; PULSE 56–74; RESP 15–32; TEMP 96.7–97.2; O2SAT 96–100
[2023-07-29] MEDS: IPRATROPIUM 0.02% 0.5 MG/2.5 ML NEBU INH SCH ×4 (00:38→19:00)
[2023-07-29] MEDS: LEVALBUTEROL 0.63 MG/3 ML NEBU INH SCH ×4 (00:38→22:20)
[2023-07-29] MEDS: DEXT 5% / NACL 0.45% 1,000 ML IV SCH ×3 (01:30→22:23)
[2023-07-29] MEDS: PIPERACILLIN/TAZOBACTAM 2.25 GM in DEXTROSE 5% 50 ML IV SCH ×4 (02:28→22:23)
[2023-07-29] MEDS: ALBUMIN HUMAN 25% 50 ML IV SCH ×2 (08:09→21:17)
[2023-07-29 08:59] LABS: HEMATOCRIT 45.2 % (36-48); HEMOGLOBIN 14.3 g/dL (12.0-16.0); LYMPHOCYTES # (AUTO) 0.6 K/uL (2.5-16.5); LYMPHOCYTES % (AUTO) 3.7 % (20.5-51.1); MEAN CORPUSCULAR HEMOGLOBIN 30 pg (27-31); MEAN CORPUSCULAR HGB CONC 32 g/dL (33-37); MEAN CORPUSCULAR VOLUME 94.3 fL (80-94); MONOCYTES # (AUTO) 0.6 K/uL (0.8-1.0); MONOCYTES % (AUTO) 3.7 % (1.7-9.3); NEUTROPHILS # (AUTO) 14.3 K/uL (1.8-7.7); NEUTROPHILS % (AUTO) 92.6 % (42.2-75.2); PLATELET COUNT (AUTO) 36 K/uL (140-450); RED BLOOD CELL COUNT(AUTO) 4.79 MIL/uL (4.20-5.40); RED CELL DISTRIBUTION WIDTH 17.1 % (11.6-13.7); WHITE BLOOD COUNT (AUTO) 15.5 K/uL (4.8-10.8)
[2023-07-29] MEDS: DOCUSATE SODIUM 100 MG GELCAP PO SCH ×2 (09:00→21:00)
[2023-07-29] MEDS: ECOTRIN 81 MG TABEC PO SCH (09:00)
[2023-07-29] MEDS: FUROSEMIDE 20 MG/2 ML VIAL IVP SCH (09:00)
[2023-07-29] MEDS: carvediloL 3.125 MG TAB PO SCH (09:00)
[2023-07-29 09:07] LABS: ALANINE AMINOTRANSFERASE 17 U/L (12-78); ALBUMIN 2.4 g/dL (3.4-5.0); ALKALINE PHOSPHATASE 80 U/L (50-136); ANION GAP 15.5 (8-16); ASPARTATE AMINOTRANSFERASE 92 U/L (15-37); CALCIUM 8.3 mg/dL (8.5-10.1); CARBON DIOXIDE 25.6 mmol/L (21-32); CHLORIDE 116 mmol/L (98-107); GLUCOSE 107 mg/dL (74-106); POTASSIUM 4.1 mmol/L (3.5-5.1); SODIUM SERUM 153 mmol/L (136-145); TOTAL BILIRUBIN 1.7 mg/dL (0.0-1.0); TOTAL PROTEIN, SERUM 4.8 g/dL (6.4-8.2)
[2023-07-29 09:35] LABS: UREA NITROGEN, BLOOD 82 mg/dL (7-18)
[2023-07-30] VITALS (7 sets, daily range): BP systolic 0–94; BP diastolic 0–37; PULSE 0–72; RESP 0–30; TEMP 96.9; O2SAT 0–98
[2023-07-30] MEDS: IPRATROPIUM 0.02% 0.5 MG/2.5 ML NEBU INH SCH ×3 (03:03→14:13)
[2023-07-30] MEDS: LEVALBUTEROL 0.63 MG/3 ML NEBU INH SCH ×3 (03:03→14:13)
[2023-07-30] MEDS: PIPERACILLIN/TAZOBACTAM 2.25 GM in DEXTROSE 5% 50 ML IV SCH ×2 (04:42→12:49)
[2023-07-30 05:50] LABS: BASOPHILS % (AUTO) 0.1 % (0.0-2.0); EOSINOPHILS % (AUTO) 0.1 % (0.0-4.0); HEMATOCRIT 43.1 % (36-48); HEMOGLOBIN 13.9 g/dL (12.0-16.0); LYMPHOCYTES # (AUTO) 0.7 K/uL (2.5-16.5); MEAN CORPUSCULAR HEMOGLOBIN 31 pg (27-31); MEAN CORPUSCULAR HGB CONC 32 g/dL (33-37); MEAN CORPUSCULAR VOLUME 95.2 fL (80-94); MONOCYTES # (AUTO) 0.5 K/uL (0.8-1.0); NEUTROPHILS # (AUTO) 15.8 K/uL (1.8-7.7); NEUTROPHILS % (AUTO) 92.8 % (42.2-75.2); PLATELET COUNT (AUTO) 31 K/uL (140-450); RED BLOOD CELL COUNT(AUTO) 4.53 MIL/uL (4.20-5.40); RED CELL DISTRIBUTION WIDTH 16.7 % (11.6-13.7)
[2023-07-30 06:36] LABS: ALANINE AMINOTRANSFERASE 17 U/L (12-78); ALBUMIN 2.6 g/dL (3.4-5.0); ALKALINE PHOSPHATASE 74 U/L (50-136); ASPARTATE AMINOTRANSFERASE 81 U/L (15-37); CALCIUM 7.9 mg/dL (8.5-10.1); CARBON DIOXIDE 19.6 mmol/L (21-32); CHLORIDE 114 mmol/L (98-107); CREATININE 3.8 mg/dL (0.6-1.3); GLUCOSE 109 mg/dL (74-106); POTASSIUM 4.6 mmol/L (3.5-5.1); SODIUM SERUM 150 mmol/L (136-145); TOTAL BILIRUBIN 1.9 mg/dL (0.0-1.0); TOTAL PROTEIN, SERUM 4.9 g/dL (6.4-8.2); UREA NITROGEN, BLOOD 47 mg/dL (7-18)
[2023-07-30] MEDS: DOCUSATE SODIUM 100 MG GELCAP PO SCH (09:00)
[2023-07-30] MEDS ORDERED: MORPHINE SULFATE 50 MG in NACL 0.9% 45 ML IV PRN (14:50)
== END 2023-07-30 20:10 | DRG 177 ==
LOC: MED 15:25 → MTU 17:24
PROVIDERS: ADMIT Internal Medicine; ATTEND Internal Medicine
DX: J69.0 Pneumonitis due to inhalation of food and vomit (principal); G93.41 Metabolic encephalopathy; J96.21 Acute and chronic respiratory failure with hypoxia; J96.22 Acute and chronic respiratory failure with hypercapnia; I50.23 Acute on chronic systolic (congestive) heart failure; N17.0 Acute kidney failure with tubular necrosis; I13.0 Hypertensive heart and chronic kidney disease with heart failure and stage 1 through stage 4 chronic kidney disease, or unspecified chronic kidney disease; E87.0 Hyperosmolality and hypernatremia; Z68.1 Body mass index [BMI] 19.9 or less, adult; E44.0 Moderate protein-calorie malnutrition; N13.30 Unspecified hydronephrosis; I42.9 Cardiomyopathy, unspecified; N18.30 Chronic kidney disease, stage 3 unspecified; G30.9 Alzheimer's disease, unspecified; Z66 Do not resuscitate; I27.20 Pulmonary hypertension, unspecified; F02.80 Dementia in other diseases classified elsewhere, unspecified severity, without behavioral disturbance, psychotic disturbance, mood disturbance, and anxiety; E78.5 Hyperlipidemia, unspecified; Z88.1 Allergy status to other antibiotic agents; Z88.8 Allergy status to other drugs, medicaments and biological substances; Z79.899 Other long term (current) drug therapy; Z88.2 Allergy status to sulfonamides
CPT/HCPCS: 36415; 36600; 71045; 76770; 80048; 80053; 82803; 83605; 83735; 83880; 84100; 84443; 84484; 85025; 85651; 86140; 87081; 92526; 93005; 94640; 96365; 96367; 97112; 97116; 97530; 99285; J0456; J0696; J1630; J1644; J1940; J2001; J2060; J2270; J2543; J3480; J7030; J7060; J7613; J7614; J7644; P9046; Q0092